=== PATIENT | female | born 1995 | race Two or more races ===

== ENCOUNTER → 2018-07-21 | Outpatient (CLI) | payer OTHER | LOC: FIMAGING 12:15 | PROVIDERS: ATTEND Physician Assistant | DX: N83.291 Other ovarian cyst, right side (principal); Z97.5 Presence of (intrauterine) contraceptive device ==

== ENCOUNTER 2019-01-28 18:05 | Emergency (ER) | payer OTHER ==
[2019-01-28 18:48] LABS: PLATELET COUNT 262 10^3/uL (150-400)
--- NOTE | 2019-01-28 18:59 | CPEKG ---
Test Reason : OPEN Blood Pressure : / mmHG Vent. Rate : 072 BPM Atrial Rate : 071 BPM P-R Int : 169 ms QRS Dur : 079 ms QT Int : 402 ms P-R-T Axes : 042 048 027 degrees QTc Int : 440 ms Sinus rhythm Probable left atrial enlargement Confirmed by Ernst Velásquez ([id number]) on 01/28/2019 6:59:51 PM Referred By: Ernst Velásquez Confirmed By:Ersnt Velásquez
[2019-01-28 19:11] LABS: CREATINE KINASE 82 IU/L (0-156)
--- NOTE | 2019-01-28 19:42 | EDPHY ---
H & P Stated Complaint: elec shock/outlet Time Seen by Provider: 01/28/19 18:19 HPI/ROS: Chief complaint: Electrical shock History of present illness: This is a 23-year-old female who presents to the emergency department after sustaining an electric shock at work just prior to arrival. Patient was plugging in a plug when the plastic around the metal broke and the metal touched her hand. She felt an electric shock and could not let go of the plug for a number of seconds. During that time she also developed some discomfort in her right foot. Right after the shock she felt well. However over the the next half an hour prior to arrival here she started to develope some discomfort in her right arm and chest. She denies other associated signs or symptoms at this time. Review of systems: A 10 point review of systems was obtained and other than described above was negative. - Personal History LMP (Females 10-55): 22-28 Days Ago Current Tetanus/Diphtheria Vaccine: Yes - Medical/Surgical History Hx Asthma: No Hx Chronic Respiratory Disease: No Hx Diabetes: No Hx Cardiac Disease: No Hx Renal Disease: No Hx Cirrhosis: No Hx Alcoholism: No Other PMH: Denies - Social History Smoking Status: Current some day smoker - Physical Exam Exam: General Appearance: Alert, no distress. Eyes: Pupils equal and round no pallor or injection. ENT, Mouth: Mucous membranes moist. Respiratory: There are no retractions, lungs are clear to auscultation. Cardiovascular: Regular rate and rhythm. Gastrointestinal: Abdomen is soft and non tender, no masses, bowel sounds normal. Neurological: Alert and oriented x4. Cranial nerves 2-12 grossly intact. Strength and sensation intact and symmetrical. Skin: No ritchie noted including in the right hand and foot. Musculoskeletal: Neck is supple non tender. Extremities are symmetrical, full range of motion. Psychiatric: Patient is oriented X 3, there is no agitation. Constitutional: Initial Vital Signs Temperature (C) 36.5 C 01/28/19 18:08 Heart Rate 79 01/28/19 18:08 Respiratory Rate 16 01/28/19 18:08 Blood Pressure 153/112 H 01/28/19 18:08 O2 Sat (%) 100 01/28/19 18:08 O2 Delivery Mode Room Air Allergies/Adverse Reactions: No Known Allergies Allergy (Unverified 01/28/19 18:11) Home Medications: Medication Instructions Recorded NK [No Known Home Meds] 01/28/19 Medical Decision Making - Diagnostics Imaging Results: Imaging Impressions Chest X-Ray 01/28/19 18:19 Impression: 1. No acute pulmonary disease. 2. No pneumothorax. Imaging: I viewed and interpreted images myself ED Course/Re-evaluation: Patient is discussed with my secondary supervising physician Dr. Ernst Velásquez. Patient presents to the emergency department after sustaining an electric shock. She is nontoxic. Vital signs are stable. Evaluation is unremarkable. I believe she is safe for discharge home. Home care is discussed. She is to follow up with her primary care doctor or worker's compensation for recheck. Strict return precautions were discussed. Patient voiced understanding and agreement with plan. Differential Diagnosis: Included but not limited to electric shock, electric shock with complications such as cardiac dysrhythmia or burn or rhabdomyolysis - Data Points Laboratory Results: Laboratory Results 01/28/19 18:30 01/28/19 18:30 01/28/19 01/28/19 01/28/19 19:04 18:45 18:30 WBC RBC Hgb Hct MCV MCH MCHC RDW Plt Count MPV Neut % (Auto) Lymph % (Auto) [place] % (Auto) Eos % (Auto) Baso % (Auto) Nucleat RBC Rel Count Absolute Neuts (auto) Absolute Lymphs (auto) Absolute Monos (auto) Absolute Eos (auto) Absolute Basos (auto) Absolute Nucleated RBC Immature Gran % Immature Gran # Sodium Potassium Chloride Carbon Dioxide Anion Gap BUN Creatinine Estimated GFR Glucose Calcium Total Bilirubin Conjugated Bilirubin Unconjugated Bilirubin AST ALT Alkaline Phosphatase Creatine Kinase POC Troponin I 0.00 ng/mL ng/mL (0.00-0.08) Total Protein Albumin Beta HCG, Qual NEGATIVE Urine Color YELLOW Urine Appearance HAZY Urine pH 7.0 (5.0-7.5) Ur Specific [place] > 1.035 H (1.002-1.030) Urine Protein 2+ H (NEGATIVE) Urine Ketones 2+ H (NEGATIVE) Urine Blood NEGATIVE (NEGATIVE) Urine Nitrate NEGATIVE (NEGATIVE) Urine Bilirubin NEGATIVE (NEGATIVE) Urine Urobilinogen NEGATIVE EU EU (0.2-1.0) Ur Leukocyte Esterase NEGATIVE (NEGATIVE) Urine RBC 50-182 /hpf H /hpf (0-3) Urine WBC 1-3 /hpf /hpf (0-3) Ur Epithelial Cells 1+ /lpf /lpf (NONE-1+) Urine Mucus 4+ /lpf H /lpf (NONE-1+) Urine Glucose NEGATIVE (NEGATIVE) 01/28/19 01/28/19 18:30 18:30 WBC 9.41 10^3/uL 10^3/uL (3.80-9.50) RBC 4.77 10^6/uL 10^6/uL (4.18-5.33) Hgb 14.6 g/dL g/dL (12.6-16.3) Hct 42.2 % % (38.0-47.0) MCV 88.5 fL fL (81.5-99.8) MCH 30.6 pg pg (27.9-34.1) MCHC 34.6 g/dL g/dL (32.4-36.7) RDW 11.5 % % (11.5-15.2) Plt Count 262 10^3/uL 10^3/uL (150-400) MPV 10.0 fL fL (8.7-11.7) Neut % (Auto) 76.1 % H % (39.3-74.2) Lymph % (Auto) 19.6 % % (15.0-45.0) [place] % (Auto) 3.7 % L % (4.5-13.0) Eos % (Auto) 0.0 % L % (0.6-7.6) Baso % (Auto) 0.3 % % (0.3-1.7) Nucleat RBC Rel Count 0.0 % % (0.0-0.2) Absolute Neuts (auto) 7.16 10^3/uL H 10^3/uL (1.70-6.50) Absolute Lymphs (auto) 1.84 10^3/uL 10^3/uL (1.00-3.00) Absolute Monos (auto) 0.35 10^3/uL 10^3/uL (0.30-0.80) Absolute Eos (auto) 0.00 10^3/uL L 10^3/uL (0.03-0.40) Absolute Basos (auto) 0.03 10^3/uL 10^3/uL (0.02-0.10) Absolute Nucleated RBC 0.00 10^3/uL 10^3/uL (0-0.01) Immature Gran % 0.3 % % (0.0-1.1) Immature Gran # 0.03 10^3/uL 10^3/uL (0.00-0.10) Sodium 141 mEq/L mEq/L (135-145) Potassium 3.4 mEq/L L mEq/L (3.5-5.2) Chloride 98 mEq/L mEq/L (97-110) Carbon Dioxide 22 mEq/l mEq/l (22-31) Anion Gap 21 mEq/L H mEq/L (6-14) BUN 12 mg/dL mg/dL (7-23) Creatinine 0.5 mg/dL L mg/dL (0.6-1.0) Estimated GFR > 60 Glucose 94 mg/dL mg/dL (70-100) Calcium 9.9 mg/dL mg/dL (8.5-10.4) Total Bilirubin 0.6 mg/dL mg/dL (0.1-1.4) Conjugated Bilirubin 0.1 mg/dL mg/dL (0.0-0.5) Unconjugated Bilirubin 0.5 mg/dL mg/dL (0.0-1.1) AST 20 IU/L IU/L (14-46) ALT 17 IU/L IU/L (9-52) Alkaline Phosphatase 63 IU/L IU/L (38-126) Creatine Kinase 82 IU/L IU/L (0-156) POC Troponin I Total Protein 8.2 g/dL g/dL (6.3-8.2) Albumin 5.0 g/dL g/dL (3.5-5.0) Beta HCG, Qual Urine Color Urine Appearance Urine pH Ur Specific [place] Urine Protein Urine Ketones Urine Blood Urine Nitrate Urine Bilirubin Urine Urobilinogen Ur Leukocyte Esterase Urine RBC Urine WBC Ur Epithelial Cells Urine Mucus Urine Glucose Point of Care Test Results: Chemistry 01/28/19 18:45 POC Troponin I 0.00 ng/mL ng/mL (0.00-0.08) Departure - Departure Disposition: Home, Routine, Self-Care Clinical Impression: Electrical shock of hand Qualifiers: Encounter type: initial encounter Qualified Code(s): T75.4XXA - Electrocution, initial encounter Condition: Good Instructions: Arthralgia (ED) Additional Instructions: Follow-up with your primary care doctor or worker's compensation for continued evaluation and care Use ibuprofen or Tylenol as directed as needed for discomfort If symptoms worsen or new symptoms develop return to the emergency department for recheck Referrals: Kirstin Braun PA [Primary Care Provider] - As per Instructions
[2019-01-28 20:01] VITALS: BP 112/80
== END 2019-01-28 19:51 | disposition home or self-care (01) ==
DX: T75.4XXA Electrocution, initial encounter (principal); F17.200 Nicotine dependence, unspecified, uncomplicated
CPT/HCPCS: 84484-ER